=== PATIENT | male | born 1995 | race Caucasian/White ===

== ENCOUNTER 2020-11-09 19:56 | Emergency (ER) | payer BC ==
[2020-11-09] MEDS ORDERED: DIPHTH,PERTUSS(ACELL),TET 0.5 ML DISP.SYRIN IM ONE ×2 (20:21→20:41)
[2020-11-09] MEDS ORDERED: AMOX TR/POT CLAV 875MG/125MG TABLETS (FP) PO ONE (20:22)
[2020-11-09 20:37] VITALS: BP 108/73; PULSE 69; TEMP 98.2; BMI 22.8
[2020-11-09] MEDS ORDERED: AMOX TR/POT CLAV 875MG/125MG TABLETS (FP) ONE (20:40)
== END 2020-11-09 21:00 | disposition home or self-care (01) ==
LOC: FER 19:56
PROC: 3E0234Z Introduction of Serum, Toxoid and Vaccine into Muscle, Percutaneous Approach (ICD-10-PCS; principal; 2020-11-09)
DX: S81.852A Open bite, left lower leg, initial encounter (principal); W55.03XA Scratched by cat, initial encounter; W55.01XA Bitten by cat, initial encounter
CPT/HCPCS: 90715; 99284-25

== ENCOUNTER 2021-04-27 08:24 | Emergency (ER) | payer OTHER, BC ==
[2021-04-27 08:32] VITALS: BP 133/67; PULSE 82; TEMP 98.5; BMI 21.2
== END 2021-04-27 09:13 | disposition home or self-care (01) ==
LOC: FER 08:24
PROC: 0HQ1XZZ Repair Face Skin, External Approach (ICD-10-PCS; principal; 2021-04-27)
DX: S01.111A Laceration without foreign body of right eyelid and periocular area, initial encounter (principal); W00.0XXA Fall on same level due to ice and snow, initial encounter
CPT/HCPCS: 99282-25

== ENCOUNTER 2021-05-02 21:07 | Emergency (ER) | payer OTHER, BC ==
[2021-05-02 21:13] VITALS: BP 124/68; PULSE 52; TEMP 98.1; BMI 21.2
== END 2021-05-02 21:42 | disposition home or self-care (01) ==
LOC: FER 21:07
DX: S01.111A Laceration without foreign body of right eyelid and periocular area, initial encounter (principal); Y99.9 Unspecified external cause status; Z48.02 Encounter for removal of sutures
CPT/HCPCS: 99281-25

== ENCOUNTER 2022-02-24 09:20 | Emergency (ER) | payer BC, OTHER ==
[2022-02-24 09:34] VITALS: BP 116/75; PULSE 88; RESP 16; TEMP 99; BMI 21.2
[2022-02-24 10:17] LABS: HEMATOCRIT 48.9 % (35.4-49); MCH 30.3 pg (25.7-33.7); MCHC 34.8 g/dl (32.0-35.9); MEAN CELL VOLUME 87.2 fl (80-96); MEAN PLT VOLUME 9.1 fl (7.5-11.1); PLATELET COUNT 137.2 10^3/uL (134-434); RBC 5.61 10^6/uL (4.00-5.60); RDW 13.9 % (11.9-15.9); WHITE BLOOD COUNT 3.8 10^3/uL (4.0-10.8)
[2022-02-24 10:28] LABS: ALBUMIN 4.6 g/dl (3.4-5.0); BILIRUBIN,TOTAL 1.1 mg/dl (0.2-1); CALCIUM 8.8 mg/dl (8.5-10); CREATININE 1.1 mg/dl (0.55-1.3); TOT PROT 7.2 g/dl (6.4-8.2)
== END 2022-02-24 11:00 | disposition home or self-care (01) ==
LOC: FER 09:20
DX: B34.9 Viral infection, unspecified (principal)
CPT/HCPCS: 0241U-QW; 36415; 80053; 85027; 99283-25

== ENCOUNTER 2024-05-07 14:46 | Emergency (ER) | payer BC ==
[2024-05-07 15:00] VITALS: RESP 18; BMI 21.2
[2024-05-07] MEDS ORDERED: ONDANSETRON 4 MG/2 ML VIAL ONE (15:08)
[2024-05-07] MEDS ORDERED: FAMOTIDINE 20 MG/50 ML IVPB 20 MG/50 ML MG IVPB ONE (15:08)
[2024-05-07] MEDS ORDERED: ACETAMINOPHEN INJECTION 100 ML ONE (15:08)
[2024-05-07] MEDS: SODIUM CHLORIDE 1,000 ML IV STA (15:10)
[2024-05-07] MEDS: ONDANSETRON 4 MG/2 ML VIAL IVPUSH ONE (15:12)
[2024-05-07] MEDS: FAMOTIDINE 20 MG/50 ML IVPB 20 MG/50 ML MG IVPB ONE (15:15)
[2024-05-07] MEDS: ACETAMINOPHEN 1000 MG/100 ML BAG IVPB ONE (15:32)
[2024-05-07 15:46] LABS: HEMATOCRIT 49.9 % (35.4-49); HEMOGLOBIN 17.5 G/dL (11.7-16.9); MCH 31.1 pg (25.7-33.7); MCHC 35.1 g/dl (32.0-35.9); MEAN CELL VOLUME 88.8 fl (80-96); PLATELET COUNT 151.1 10^3/uL (134-434); RBC 5.62 10^6/uL (4.00-5.60); RDW 13.5 % (11.9-15.9); WHITE BLOOD COUNT 6.8 10^3/uL (4.0-10.8)
[2024-05-07 16:12] LABS: ALBUMIN 4.7 g/dl (3.4-5.0); BILIRUBIN,TOTAL 1.1 mg/dl (0.2-1); CALCIUM 9.2 mg/dl (8.5-10.1); POTASSIUM 4.4 mmol/L (3.5-5.1)
[2024-05-07 17:06] VITALS: BP 110/71; PULSE 87; TEMP 100.4
[2024-05-07 20:12] LABS: HIV INTERPRETATION NEGATIVE (NEGATIVE)
== END 2024-05-07 17:06 | disposition home or self-care (01) ==
LOC: FER 14:46
PROC: 3E033GC Introduction of Other Therapeutic Substance into Peripheral Vein, Percutaneous Approach (ICD-10-PCS; principal; 2024-05-07)
PROC: 3E033NZ Introduction of Analgesics, Hypnotics, Sedatives into Peripheral Vein, Percutaneous Approach (ICD-10-PCS; 2024-05-07)
PROC: 3E033GC Introduction of Other Therapeutic Substance into Peripheral Vein, Percutaneous Approach (ICD-10-PCS; 2024-05-07)
DX: R11.2 Nausea with vomiting, unspecified (principal); R50.9 Fever, unspecified; Z20.822 Contact with and (suspected) exposure to COVID-19
CPT/HCPCS: 0241U-QW; 36415; 80053; 85027; 86803; 87389; 99284-25; J0131

== ENCOUNTER 2024-05-07 17:37 | Emergency (ER) | payer BC ==
[2024-05-07] MEDS: SODIUM CHLORIDE 1,000 ML IV STA (17:45)
[2024-05-07] MEDS ORDERED: METOCLOPRAMIDE HCL INJECTION 10 MG/2 ML VIAL ONE (17:50)
[2024-05-07] MEDS: METOCLOPRAMIDE HCL INJECTION 10 MG/2 ML VIAL IVPB ONE (17:55)
[2024-05-07 17:58] VITALS: BP 122/79; BMI 22.8
[2024-05-07 19:07] VITALS: PULSE 88; RESP 16
[2024-05-07 19:33] VITALS: TEMP 100.1
== END 2024-05-07 19:46 | disposition home or self-care (01) ==
LOC: FER 17:37
PROC: 3E033GC Introduction of Other Therapeutic Substance into Peripheral Vein, Percutaneous Approach (ICD-10-PCS; principal; 2024-05-07)
PROC: 3E0337Z Introduction of Electrolytic and Water Balance Substance into Peripheral Vein, Percutaneous Approach (ICD-10-PCS; 2024-05-07)
DX: R11.2 Nausea with vomiting, unspecified (principal); B34.9 Viral infection, unspecified
CPT/HCPCS: 74177-TC; 99285-25; Q9967